=== PATIENT | male | born 1960 | race Caucasian/White ===

== ENCOUNTER → 2017-08-29 | Outpatient (CLI) | payer OTHER ==
[~2017-08-29] MED LIST: CLAR10CA3 PO; CYCL10TA PO; ECASA81 PO; HYDR-3366 PO; MULTTAB67 PO; VITA100021 SL; WALKER WHEELS/F1 MIS
== END ==
LOC: CPRE 11:25
PROVIDERS: ATTEND Neurological Surgery
DX: Z01.810 Encounter for preprocedural cardiovascular examination (principal); M50.30 Other cervical disc degeneration, unspecified cervical region
CPT/HCPCS: 87640; 87641

== ENCOUNTER 2017-09-03 05:50 | Observation (INO) | payer OTHER ==
--- NOTE | 2017-09-02 15:10 | MH ---
cc: Олег Silva Rohit K MD Sawiris, Nader Doolin, Dina DATE OF ADMISSION: 09/03/2017 ADMITTING DIAGNOSIS: Cervical degenerative disk disease. HISTORY OF PRESENT ILLNESS: This is a 56-year-old male who has previously undergone a right L4-L5 transforaminal interbody fusion with cage and pedicle screw fixation by Dr. Marcial Sweeney on 05/30/2016. He continues to complain of low back pain, which he rates at 8/10. He denies any radiculopathy in the lower extremities. He denies any paresthesias in the lower extremities. He states his pain improves somewhat with lying down. He states sitting is the worst position, then he feels like he has to stand and lean on something to be more comfortable. He also complains of neck pain that he rates at a 7/10. He denies any radiculopathy in the upper extremities, although he does have some pain radiating into the right shoulder. He denies any paresthesias or weakness in the upper or lower extremities. He has been to pain management extensively for his lumbar spine before surgery and feels that the injection did not help. He states he does exercises for his cervical spine. PAST MEDICAL HISTORY: Significant for kyphoplasty at L4 and L5 on 02/22/[address] Burch and L4-L5 transforaminal interbody fusion with cage and pedicle screw fixation by Dr. Sweeney on 06/09/2016. He otherwise denies any major medical illnesses. CURRENT MEDICATIONS: He was taking ibuprofen 800 mg; however, this was placed on hold prior to surgical intervention. ALLERGIES TO MEDICATIONS: HE HAS NO KNOWN DRUG ALLERGIES. FAMILY HISTORY: His mother and father were both at 81 years old. He has a sister and 2 brothers that are alive. 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 He is . He has 1 child. He does not smoke. He drinks alcohol on a social basis occasionally. REVIEW OF SYSTEMS: CONSTITUTIONAL: He denies any fever or chills. EARS, NOSE, AND THROAT: No pharyngitis, exudates or bloody drainage from his nose. CARDIOVASCULAR: He denies any chest pain or palpitations. RESPIRATORY: No cough or shortness of breath. GENITOURINARY: No dysuria or hematuria. MUSCULOSKELETAL: Positive for neck and chronic low back pain. SKIN: No rashes or pruritis. NEUROLOGIC: No difficulty with speech or memory. GASTROINTESTINAL: No nausea, vomiting or abdominal pain. PSYCHIATRIC: No anxiety or depression symptoms. ENDOCRINE: No polyuria or polydipsia. HEMATOLOGIC: No bruising or bleeding tendencies. PHYSICAL EXAMINATION: HEAD: Normocephalic, atraumatic. NECK: Supple. No carotid bruits heard on auscultation. LUNGS: Clear to auscultation bilaterally. HEART: Regular rate and rhythm. Normal S1, S2. ABDOMEN: Soft, nontender. Positive bowel sounds. SKIN: Reveals no cyanosis or erythema. MUSCULOSKELETAL: He has 5/5 strength in the upper and lower extremities. He ambulates without any assistive device. NEUROLOGIC: He is awake, alert and oriented. Cranial nerves 2-12 are grossly intact. His speech is fluent. Comprehension is good. Sensation is intact in the upper and lower extremities. DATA REVIEWED: MRI of the cervical spine from 06/07/2017, reveals advanced degenerative disk disease at the C5-C6 level with vertebral body endplate changes from inflammatory responses along with disk protrusion and osteophytes. There is a lesser degree of disk protrusion at adjacent levels. IMPRESSION: A 56-year-old male with a chronic history of neck pain and relates that he has had intermittent radiculopathy. At this point, his neck pain is what really bothers him. Again, the MRI of the cervical spine from 06/07/2017, reveals advance degenerative disk disease at the C5-C6 level with vertebral body endplate changes from an inflammatory response along with disk protrusion and osteophytes. He also has a lesser degree of disk protrusion noted at adjacent levels. PLAN: We have discussed treatment options,which include continued conservative treatment measures with physical therapy and pain management. The patient is requesting that we proceed with surgical intervention and we have discussed an anterior C5-C6 microdiskectomy with interbody fusion and cervical plate placement. The procedure as well as the risks, benefits, alternatives and recovery time were explained in great detail with the patient. We have discussed the risks involved with surgery including but not limited to bleeding, infection, muscle weakness, voice hoarseness, difficulty swallowing, heart attack, stroke blood clots, nonfusion, scar tissue formation among others. No guarantees were made to the patient as to the results of the surgery. Patient states that he understands the procedure as well as the risks involved and he is requesting that we proceed, and he was therefore scheduled accordingly. JOSEMANUEL Tran MD ESP/BASHIR , 02:36 PM , 03:09 PM
[~2017-09-03] VITALS: Ht 182.9 cm; Wt 80.0 kg
[~2017-09-03 05:50] MED LIST changes: -CYCL10TA PO; -HYDR-3366 PO; -VITA100021 SL; -WALKER WHEELS/F1 MIS
[2017-09-03] MEDS ORDERED: VANCOMYCIN 1 GM/200 ML PREMIX ON-CALL IV SCH (06:30)
[2017-09-03] MEDS: SODIUM CHLOR 0.9% 1000 ML INJ 1,000 ML IV SCH (06:30)
[2017-09-03] MEDS ORDERED: POVIDONE IODINE 5% (ANTISEPSIS KIT) 4 APPLICATIONS EACH NARE PRN (07:00)
[2017-09-03] MEDS ORDERED: SODIUM CHLORID 0.9% 500 ML IV PRN (07:00)
[2017-09-03] MEDS ORDERED: CHLORHEXIDINE GLUCONATE 2 % 1 PACK (2 CLOTHS) TOPICAL PRN (07:00)
[2017-09-03] MEDS ORDERED: LACTATED RINGER'S 1000 ML IV PRN (07:00)
[2017-09-03] MEDS ORDERED: METOPROLOL TARTRATE 25 MG TAB PO PRN (07:00)
[2017-09-03] MEDS ORDERED: VANCOMYCIN HCL 1000 MG VIAL ONE (07:42)
[2017-09-03] MEDS ORDERED: BUPIVACAINE/EPINEPHRINE 0.5% PF 30 ML VIAL ONE (07:43)
[2017-09-03] MEDS ORDERED: GELFOAM SIZE 100 ONE (07:43)
[2017-09-03] MEDS ORDERED: THROMBIN (TOPICAL) 5,000 UNIT VIAL ONE (07:43)
[2017-09-03 08:07] LABS: AUTOMATED NEUTROPHIL # 4.1 TH/MM3 (1.8-7.7); BASOPHIL % 0.7 % (0.0-2.0); EOSINOPHIL # 0.2 TH/MM3 (0-0.4); EOSINOPHIL % 3.2 % (0.0-4.0); HEMATOCRIT 42.2 % (39.0-51.0); HEMOGLOBIN 14.7 GM/DL (13.0-17.0); LYMPH % 21.4 % (9.0-44.0); LYMPHOCYTE # 1.3 TH/MM3 (1.0-4.8); MEAN CELL VOLUME 96.4 FL (80.0-100.0); MEAN CORPUSCULAR HEMOGLOBIN 33.6 PG (27.0-34.0); MEAN CORPUSCULAR HGB CONC 34.9 % (32.0-36.0); MEAN PLATELET VOLUME 6.5 FL (7.0-11.0); MONO % 9.9 % (0.0-8.0); MONOCYTE # 0.6 TH/MM3 (0-0.9); NEUT % 64.8 % (16.0-70.0); PLATELET COUNT 210 TH/MM3 (150-450); RED BLOOD COUNT 4.37 MIL/MM3 (4.50-5.90); RED CELL DISTRIBUTION WIDTH 12.8 % (11.6-17.2); WHITE BLOOD COUNT 6.3 TH/MM3 (4.0-11.0)
[2017-09-03 08:19] LABS: ALBUMIN 3.9 GM/DL (3.4-5.0); AST (GOT) 16 U/L (15-37); BICARBONATE 28.3 MEQ/L (21.0-32.0); BLOOD UREA NITROGEN 17 MG/DL (7-18); CALCIUM 9.4 MG/DL (8.5-10.1); CHLORIDE 104 MEQ/L (98-107); CREATININE 0.85 MG/DL (0.60-1.30); GLOMERULAR FILTRATION RATE 93 ML/MIN (>89); GLUCOSE,RANDOM 99 MG/DL (74-106); SODIUM (NA) 140 MEQ/L (136-145)
[2017-09-03 08:20] LABS: ALT (GPT) 27 U/L (12-78); PROTHROMBIN TIME - PATIENT 10.4 SEC (9.8-11.6)
[2017-09-03 08:23] LABS: ALKALINE PHOSPHATASE 80 U/L (45-117); TOTAL BILIRUBIN ADULT 0.5 MG/DL (0.2-1.0)
[2017-09-03] MEDS ORDERED: ACETAMINOPHEN 1000 MG/100 ML 100 ML IV ONE (09:48)
[2017-09-03] MEDS ORDERED: DEXAMETHASONE SOD PHOS 4 MG/ML VIAL ONE (09:49)
[2017-09-03] MEDS ORDERED: PROPOFOL 500 MG/50 ML INJ 100 ML ONE (09:49)
[2017-09-03] MEDS ORDERED: DEXAMETHASONE SOD PHOS 4 MG/ML VIAL IV PUSH SCH (10:00)
--- NOTE | 2017-09-03 11:57 | PD.OP ---
Brittany Wheat, Operative Report Date of Surgery: Sep 03, 2017 Preoperative Diagnosis: Intractable neck pain with radiculopathy; cervical C5-6 degenerative disc disease with disc osteophyte complex and associated spinal and foraminal stenosis Postoperative Diagnosis: Same Procedure: Anterior cervical C5-6 microdiscectomy with interbody fusion; anterior C5-6 cervical plate placement; C5-6 interbody cage placement; microsurgical technique Anesthesia: Gen. endotracheal by Veronica brewer Surgeon: Marcial Sweeney M.D. Explosives Mixer Operator(s): Sandra Coughlin Operation and Findings: Following administration of general endotracheal anesthesia, the patient received a gram of vancomycin and Decadron 10 mg intravenously. Sequential compression devices were placed in supine position on a Nam table and all pressure points adequately padded. The head secured in a donut and anterior cervical region then shaved and prepped with Chloraprep and sterilely draped with Ioban along with the usual sterile draping. A transverse skin incision on the left side of the neck was then made after infiltrating the skin with 0.5% Marcaine with epinephrine solution extending down through the platysma. At the anterior border of the sternocleidomastoid further dissection was undertaken developing a plane between the carotid sheath laterally and the trachea esophagus medially. The prevertebral fascia was exposed and dissected out. The medial attachments of the longus colli muscles were detached and a self- retaining retractor used for exposure. The C5-6 disc space was localized with a marking the disc space and using lateral fluoroscopy. Ridgewood distraction screws 14 mm length were placed one in the C5 and one in the C6 body interbody distraction and exposure. There was significant disc degeneration with disc height collapse and anterior osteophytes noted at the C5-6 level and the osteophytes were resected with a Leksell and annulus incised with a 15 blade and further dissection undertaken using microtechnique with microscope magnification. Diskectomy was undertaken with pituitaries and the endplates were also decorticated with curettes and drill bit. And more posteriorly there was disk osteophyte complex compressing the thecal sac along with a significant uncovertebral joint hypertrophy with foraminal stenosis which was decompressed along with removal of the posterior longitudinal ligaments at both levels. The foramen was decompressed bilaterally using a Kerrison's and palpation with a nerve hook, the exiting nerve roots were felt to be free. The area was then copiously irrigated. I then placed a Peek cage packed with local autograft bone at the C5-6 interspace under fluoroscopy guidance. Ridgewood distraction pins were removed and the holes plugged with Gelfoam for hemostasis. In order to facilitate the fusion and provide stabilization, a Precision spine cervical uniplate was then placed with a 14 mm variable angle screw in the C5 body and a 14 mm fixed angle screw in the C6 body. The plate screw locking mechanism was then engaged. AP and lateral fluoroscopy confirmed good placement of the construct and the retractor was then removed. Muscular bleeding points were cauterized with bipolar cautery and Gelfoam was then also used for hemostasis which was removed. The platysma was then approximated using 3-0 Vicryl interrupted stitches and 3-0 Vicryl subcuticular stitch also placed in an interrupted fashion, and final skin closure was with Mastisol and Steri-Strips. Sterile dressing was then applied. The patient was then extubated and taken to the recovery room. There are no intraoperative complications and all sponge and needle counts were correct at the end of procedure. Estimated blood loss was about 30 cc. The patient did undergo intraoperative neurologic monitoring which remained stable throughout the surgery. Marcial Sweeney MD Sep 03, 2017 11:57
[2017-09-03] MEDS ORDERED: ZOLPIDEM TARTRATE 5 MG TAB PO PRN (12:00)
[2017-09-03] MEDS ORDERED: LACTATED RINGER'S 1000 ML INJ 1,000 ML IV ONE (12:00)
[2017-09-03] MEDS ORDERED: PROPOFOL 200 MG/20 ML AMP IV ONE (12:00)
[2017-09-03] MEDS: DEXAMETHASONE SOD PHOS 4 MG/ML VIAL IV PUSH SCH ×2 (12:00→18:12)
[2017-09-03] MEDS ORDERED: ONDANSETRON HCL 4 MG/2 ML VIAL IV ONE (12:00)
[2017-09-03] MEDS ORDERED: DEXAMETHASONE SOD PHOS 4 MG/ML VIAL IV ONE (12:00)
[2017-09-03] MEDS ORDERED: RESP: ALBUTEROL 2.5 MG/3 ML NEB (PRN) NEB (12:00)
[2017-09-03] MEDS ORDERED: PROMETHAZINE INJ 25 MG/ML VIAL IM PRN (12:00)
[2017-09-03] MEDS ORDERED: SENNOSIDES 8.6 MG TAB PO PRN (12:00)
[2017-09-03] MEDS ORDERED: NORMOSOL R INJ 2,000 ML IV ONE (12:00)
[2017-09-03] MEDS ORDERED: cloNIDine HCL 0.1 MG TAB PO PRN (12:00)
[2017-09-03] MEDS ORDERED: ONDANSETRON HCL 4 MG/2 ML VIAL IV PUSH PRN (12:00)
[2017-09-03] MEDS ORDERED: ROCURONIUM INJ 50 MG/5 ML SYRINGE IV PUSH ONE (12:00)
[2017-09-03] MEDS ORDERED: MENTHOL LOZENGE BUCCAL PRN (12:00)
[2017-09-03] MEDS ORDERED: NEOSTIGMINE 5 MG/5 ML SYRINGE IV PUSH ONE (12:00)
[2017-09-03] MEDS ORDERED: BISACODYL 10 MG SUPP RECTAL PRN (12:00)
[2017-09-03] MEDS ORDERED: LIDOCAINE HCL 1% PF 5 ML SYRINGE OTHER ONE (12:00)
[2017-09-03] MEDS ORDERED: LACTULOSE SYRUP 20 GM/30 ML CUP PO PRN (12:00)
[2017-09-03] MEDS ORDERED: ePHEDrine/NS 25 MG/5 ML SYRINGE IV ONE (12:00)
[2017-09-03] MEDS ORDERED: ACETAMINOPHEN 325 MG TAB PO PRN (12:00)
[2017-09-03] MEDS ORDERED: SODIUM CHLORIDE 0.9% FLUSH 10 ML FLUSH IV FLUSH PRN (12:00)
[2017-09-03] MEDS ORDERED: MORPHINE SULFATE 4 MG/ML INJ IV PUSH PRN (12:00)
[2017-09-03] MEDS ORDERED: DO NOT ADM ANY ANTICOAGULANT DRUGS PRN (12:00)
[2017-09-03] MEDS ORDERED: ACETAMINOPHEN/HYDROcodone 325 MG/10 MG TAB PO PRN (12:00)
[2017-09-03] MEDS ORDERED: MAGNESIUM HYDROXIDE SUSP 30 ML CUP PO PRN (12:00)
[2017-09-03] MEDS ORDERED: GLYCOPYRROLATE 1 MG/5 ML SYRINGE IV PUSH ONE (12:00)
[2017-09-03] MEDS ORDERED: CYCLOBENZAPRINE HCL 10 MG TAB PO PRN (12:00)
[2017-09-03] MEDS ORDERED: ALUMINUM/MAGNESIUM/SIMETH 30 ML CUP PO PRN (12:00)
[2017-09-03] MEDS ORDERED: MIDAZOLAM HCL 2 MG/2 ML VIAL ONE (12:10)
[2017-09-03] MEDS ORDERED: *morphine SULFATE 4 MG/ML PERIprocedure ONLY ONE ×2 (12:11→12:44)
[2017-09-03] MEDS ORDERED: ceFAZolin INJ 1,000 MG VIAL ONE (12:16)
[2017-09-03] MEDS ORDERED: SODIUM CHLORIDE 0.9% INJ 100 ML ONE (12:16)
--- NOTE | 2017-09-03 12:47 | RADRPT ---
EXAM DATE/TIME: 09/03/2017 08:49 [facility] COMPARISON: No previous studies available for comparison. INDICATIONS : C5-6 Anterior disc fusion. MEDICAL HISTORY : Gastroesophageal reflux disease. Osteoarthritis. SURGICAL HISTORY : Fusion, lumbar. Kyphoplasty. ENCOUNTER: Initial ACUITY: 1 day PAIN SCORE: Non-responsive. LOCATION: Cervical spine. FINDINGS: Two projection examination was performed. Anterior plate and screw fixation across C5-6. Normal align ment. CONCLUSION: 1. Fusion lower cervical spine. Wayne Briggs MD on September 03, 2017 at 12:45 Board Certified Radiologist. This report was verified electronically.
[2017-09-03] MEDS ORDERED: NS + KCL 20 MEQ INJ 1,000 ML IV SCH (13:00)
[2017-09-03 20:00] VITALS: BP 141/76; PULSE 68; RESP 20; TEMP 96.7; O2SAT 95
[2017-09-03] MEDS: DOCUSATE SODIUM 50 MG/SENNA 8.6 MG TAB PO SCH (20:37)
[2017-09-03] MEDS: SODIUM CHLORIDE 0.9% FLUSH 10 ML FLUSH IV FLUSH SCH (20:40)
[2017-09-03 21:38] VITALS: O2SAT 98
[2017-09-03] MEDS: ACETAMINOPHEN/HYDROcodone 325 MG/10 MG TAB PO PRN (22:04)
[2017-09-04] VITALS: BP 149/79; PULSE 70; RESP 20; TEMP 96.4; O2SAT 96
[2017-09-04] MEDS: DEXAMETHASONE SOD PHOS 4 MG/ML VIAL IV PUSH SCH
[2017-09-04] MEDS: ACETAMINOPHEN/HYDROcodone 325 MG/10 MG TAB PO PRN ×3 (02:07→10:22)
[2017-09-04 04:00] VITALS: BP 129/76; PULSE 73; RESP 20; TEMP 96.1; O2SAT 97
[2017-09-04] MEDS: SODIUM CHLOR 0.9% 1000 ML INJ 1,000 ML IV SCH (06:30)
[2017-09-04 08:00] VITALS: BP 101/67; PULSE 69; RESP 20; TEMP 96.3; O2SAT 96
[2017-09-04 08:44] VITALS: O2SAT 97
[2017-09-04] MEDS ORDERED: MULTIVITAMIN TAB PO SCH (09:00)
[2017-09-04] MEDS: SODIUM CHLORIDE 0.9% FLUSH 10 ML FLUSH IV FLUSH SCH (09:00)
[2017-09-04] MEDS ORDERED: PANTOPRAZOLE SOD 40 MG DELAYED RELEASE TAB PO SCH (09:00)
[2017-09-04] MEDS ORDERED: LORATADINE 10 MG TAB PO SCH (09:00)
[2017-09-04] MEDS: DOCUSATE SODIUM 50 MG/SENNA 8.6 MG TAB PO SCH (09:13)
--- NOTE | 2017-09-04 09:49 | HHI.NSPN ---
(Олег Silva) History Chief Complaint: Mild neck discomfort. (Олег Silva) Interval History 09/04/17: Pt s/p Anterior cervical C5-6 microdiscectomy with interbody fusion; anterior C5-6 cervical plate placement; C5-6 interbody cage placement. Pt awake and alert. States he is feeling well. Mild neck discomfort. No radiculopathy or paresthesias in UEs. Pt ambulating well. Voiding without difficulty. Pt wants to go home. (Олег Silva) Review of Systems General: Negative for: fever, chills, insomnia Respiratory: Negative for: shortness of breath, cough, sputum Cardiovascular: Negative for: chest pain Gastrointestinal: Negative for: nausea, vomitting, diarrhea, constipation ( Олег Silva) Exam Results Vital Signs Date Time Temp Pulse Resp B/P (MAP) Pulse Ox O2 Delivery O2 Flow Rate FiO2 09/04/17 08:44 97 21 09/04/17 08:00 96.3 69 20 101/67 (78) 09/03/17 16:00 Room Air 09/03/17 14:00 2 Intake and Output 09/04/17 09/04/17 09/05/17 08:00 16:00 00:00 Intake Total 580 ml Balance 580 ml (Олег Silva) Physical Examination General: Pt awake and alert resting in NAD. Eyes: Pupils equal. Sclera anicteric Resp: CTA bilaterally Heart: NSR no murmurs Abd: Soft positive bs Skin: Incision clean and dry. New bandage placed by RN this am. Muscle: Moves all 4 extremities well. Ambulated the whalen very well. Neuro: Pt awake and alert. Follows commands well. Speech clear and appropriate. Sensation intact in UEs. (Олег Silva) Lab, Micro, Other Results Last Impressions Cervical Spine X-Ray 09/03/17 0000 Signed Impressions: Service Date/Time: Sunday, September 03, 2017 08:49 - CONCLUSION: 1. Fusion lower cervical spine. Wayne Briggs MD (Олег Silva) Medical Decision Making Impression and Plan A: 56 y/o M s/p anterior cervical C5-6 microdiscectomy with interbody fusion; anterior C5-6 cervical plate placement; C5-6 interbody cage placement on 09/03. P: D/C home follow up with Dr. Sweeney as instructed Follow all restrictions. (Олег Silva) Attending Statement The exam, history, and the medical decision-making described in the above note were completed with the assistance of the mid-level provider. I reviewed and agree with the findings presented. I attest that I had a [id number] encounter with the patient on the same day, and personally performed and documented my assessment and findings in the medical record. (Marcial Sweeney MD) Олег Silva Sep 04, 2017 09:49 Marcial Sweeney MD Sep 04, 2017 10:29
== END 2017-09-04 12:31 | disposition home or self-care (01) ==
LOC: HSDC 05:50 → HSDI 11:53 → N06A 16:47
PROVIDERS: ADMIT Neurological Surgery; ATTEND Neurological Surgery
DX: M50.322 Other cervical disc degeneration at C5-C6 level (principal); M48.02 Spinal stenosis, cervical region; M54.12 Radiculopathy, cervical region; M25.78 Osteophyte, vertebrae; K21.9 Gastro-esophageal reflux disease without esophagitis
CPT/HCPCS: 00600; 20936; 22551; 22853; 72040; 76000; 80053; 85025; 85610; 85730; 94150; 96365; 96366; 96372; C1713; G0378; J0131; J0690; J1100; J2250; J2270; J2405; J2710; J3010; J3370; J3480; J7120